=== PATIENT | female | born 1965 | race Caucasian/White ===

== ENCOUNTER 2018-08-23 11:26 | Outpatient (CLI) | payer BC, SELFPAY ==
[2018-08-23 14:23] LABS: TSH (W/Ref FT4) 1.43 uIU/mL (0.358-3.74)
[2018-08-24 10:35] LABS: FSH 81.7 mIU/ml; Prolactin 9.3 ng/ml
[2018-08-24 10:59] LABS: LH 31.7 mIU/ml
== END 2018-08-23 11:46 ==
PROVIDERS: Visit Provider Obstetrics & Gynecology
DX: N92.6 Irregular menstruation, unspecified (principal); N92.0 Excessive and frequent menstruation with regular cycle
CPT/HCPCS: 36415; 83001; 83002; 84146; 84443

== ENCOUNTER 2018-08-23 13:16 | Outpatient (REF) | payer BC, SELFPAY ==
--- NOTE | 2018-08-23 11:20 | PAPFT_PTH ---
PATIENT: Mahsa Blackburn LOC: [place] U#:[id number] AGE/SX: 52/F ROOM: RE08/23/[address]: Florencia Multani MD : 1965 BED: DIS: 08/23/2018 SPEC #: [id number] RECD: 08/23/18 17:38 STATUS: MAGGIE REQ #: [id number] KEKE: 08/23/18 11:[address]: Florencia Multani DEPT: [facility] Cytology RECD BY: China Byrne ENTERED: 08/23/18 17:38 SP TYPE: PAPFT MCKENZIE DR: None Tissues: 1 - CX/ENDOCX FOR PAP SMEARS Procedures: PAP THIN PREP/[facility] Screening HPV DNA PROBE Comments: [id number] (CHLAMYDIA/GC)
[2018-08-24 15:36] LABS: Chlamydia Result Negative; GC Result Negative; Specimen Description SEE COMMENTS
== END 2018-08-23 13:36 ==
LOC: LBN 13:16
PROVIDERS: Visit Provider Obstetrics & Gynecology
DX: Z12.4 Encounter for screening for malignant neoplasm of cervix (principal); Z11.51 Encounter for screening for human papillomavirus (HPV); Z11.3 Encounter for screening for infections with a predominantly sexual mode of transmission
CPT/HCPCS: 87491; 87591; 88142; 87624

== ENCOUNTER 2018-09-04 15:22 | Outpatient (REF) | payer BC, SELFPAY ==
--- NOTE | 2018-09-04 14:45 | ENDOMET_PTH ---
PATIENT: Mahsa Blackburn LOC: [place] U#:[id number] AGE/SX: 52/F ROOM: RE09/04/[address]: Florencia Multani MD : 1965 BED: DIS: 09/04/2018 SPEC #: [id number] RECD: 09/04/18 17:35 STATUS: MAGGIE REQ #: [id number] KEKE: 09/04/18 14:[address]: Florencia Multani DEPT: Surgical Specimen RECD BY: China Byrne ENTERED: 09/04/18 17:36 SP TYPE: Endomet OTHR DR: None Tissues: 1 - ENDOMETRIUM BX/CURRETTE Procedures: GROSS AND MICRO LEVEL 4 Comments: [id number]
== END 2018-09-04 15:42 ==
LOC: LBN 15:22
PROVIDERS: Visit Provider Obstetrics & Gynecology
DX: N85.00 Endometrial hyperplasia, unspecified (principal); N93.8 Other specified abnormal uterine and vaginal bleeding
CPT/HCPCS: 88305

== ENCOUNTER 2018-09-10 08:00 | Outpatient (CLI) | payer BC, SELFPAY ==
--- NOTE | 2018-09-10 10:02 | DI.US_ITS ---
SYMPTOMS/DIAGNOSIS: IRREGULAR BLEEDING/FIBROIDS, N92.6 PELVIC ULTRASOUND: Pelvic ultrasound was performed transabdominally and transvaginally. The patient is reportedly premenopausal. The ovaries have a normal follicular appearance with 13 mm follicle or cyst of the right ovary. There are multiple uterine fibroids and the uterus is incompletely visualized due to posterior acoustic shadowing from fibroids. The largest visible fibroid is about 5 cm in greatest diameter. Endometrial stripe suboptimally visualized with some fluid seen within the endometrial stripe. Endometrium is about 9 mm in thickness and appears fairly homogeneous as visualized. CONCLUSION: Findings consistent with multiple uterine fibroids as described. Small quantity of free fluid in the endometrial cavity.
== END 2018-09-10 08:20 ==
PROVIDERS: Visit Provider Obstetrics & Gynecology
DX: N92.6 Irregular menstruation, unspecified; D25.9 Leiomyoma of uterus, unspecified
CPT/HCPCS: 76830; 76856

== ENCOUNTER 2019-08-15 07:49 | Outpatient (CLI) | payer BC, SELFPAY ==
--- NOTE | 2019-08-15 09:52 | DI.MAMMO_ITS ---
EXAM: MG MAMMO SCREENING CLINICAL HISTORY: SCREENING, Z12.31 TECHNIQUE: Bilateral full field digital CC and MLO mammographic images were obtained with 3D tomosyn thesis and utilizing computer aided detection (CAD). COMPARISON: Available for comparison. FINDINGS: Masses/Architectural Distortion: None seen. Since the prior examination the patient has undergone kisha ateral breast reconstruction. Microcalcifications: No suspicious pleomorphic-type are seen. Skin Thickening/Nipple Retraction: None. IMPRESSION: 1. No significant interval change with no specific features of malignancy noted. 2. Unless there is more urgent need, screening mammography is recommended, as per [place] [employer] guidelines. BI-RADS Category 2 - Benign Findings Breast Density - Category B - Scattered areas of fibroglandular density A negative radiographic report should not delay biopsy if a dominant or clinically suspicious mass is present. Up to ten percent of cancers are not identified on mammography. A negative report may reinforce clinical impression. Adenosis and dense breasts may obscure an underlying neoplasm. False positive reports average 6 to 10%. Patient will receive a letter notifying them of these results.
== END 2019-08-15 08:09 ==
PROVIDERS: Visit Provider Obstetrics & Gynecology
DX: Z12.31 Encounter for screening mammogram for malignant neoplasm of breast (principal)
CPT/HCPCS: 77063; 77067

== ENCOUNTER 2020-05-19 01:57 | Outpatient (CLI) | payer BC, SELFPAY ==
[2020-05-20 15:18] LABS: COVID-19 RT-PCR UVMMC Result Negative (Negative)
== END 2020-05-19 01:58 | disposition home or self-care (01) ==
LOC: LBO 01:57
PROVIDERS: Visit Provider Surgery
DX: Z20.822 Contact with and (suspected) exposure to COVID-19 (principal); Z01.818 Encounter for other preprocedural examination
CPT/HCPCS: U0003

== ENCOUNTER 2020-05-22 07:17 | Day surgery (SDC) | payer BC, SELFPAY ==
[2020-05-22 07:23] VITALS: BP 117/75; PULSE 72; RESP 16; TEMP 36.6; O2SAT 97
[2020-05-22] MEDS: Lactated Ringers 1,000 ML 80 ML IV (07:46)
--- NOTE | 2020-05-22 08:54 | W.COLOREPORT ---
Date of service: 05/22/20 Time of Service: 08:54 Colonoscopy Report Date of procedure: 05/22/20 Pre-op diagnosis general: screen Post-op diagnosis procedure note: other (divertic- mod ) Retraction Time: 8 mins Procedure Description: After informed consent was obtained the patient was taken to the procedure room and placed in a left decubitous position. Monitors were applied and a time out was done. The patients name, date of , procedure, allergies to medications and metal in their body was reviewed. The patient was then sedated. Once sedated and comfortable a rectal exam was done. External exam was normal. Internal exam revealed a normal sphincter tone and no palpable mass. The scope was then introduced and retrofelexed. No internal hemorrhoids were identified. The scope was then advanced to the cecum w/out difficulty. The TI and appendiceal orifice were identified. The prep was good. The scope was then slowly retracted over 8 minutes back into the rectum. Moderate diverticula. No signs of active bleeding or infection. The scope was removed and the patient was woken up and taken back to Same day surgery in stable condition. The patient tolerated the procedure well and there were no immediate complications. Follow up: The patient should follow up in 10 years unless they develop changes in bowel habits or other new gastrointestinal complaints.
--- NOTE | 2020-05-22 08:56 | PDOC.DSDIS_ITS ---
Discharge Plan Disposition Patient Disposition: HOME Condition: Good Discharge Details Reason For Visit: colon scope Attending Provider: Raquel De La Cruz Primary Care Provider: None,None Home Meds and New Rx's Prescriptions: Continued naproxen 250 mg tablet 250 mg PO BID RF: 0 Maximum Daily Multivitamin 18-0.4 mg tablet 1 tab PO DAILY RF: 0 vitamin B complex [B Complex-Vitamin B12] Tablet 1 tab PO DAILY RF: 0 Discontinued polyethylene glycol 3350 17 gram/dose powder 238 g PO ONCE Qty: 238 RF: 0 bisacodyl [Dulcolax (bisacodyl)] 5 mg tablet,delayed release (DR/EC) 5 mg PO ONCE Qty: 4 RF: 0 Discharge Instructions Additional Instructions: Findings:moderate diverticula . Make sure you follow a high-fiber diet and avoid straining to move your bowels. Follow up: Repeat colonoscopy in 10 years time Please call if you develop: fevers >101.5 Nausea or Vomiting Abdominal pain that is not transient DAY SURGERY UNIT POST COLONOSCOPY INSTRUCTIONS 1. Because there will be medication in your system for the next 24 hours, you may feel a little sleepy. Your coordination will be affected. Therefore: a. Do not drive or operate dangerous equipment for 24 hours. b. Do not drink alcohol beverages for 24 hours (not even beer). c. Plan to go home and rest for the day. 2. Generally there are no restrictions on your activity after a day or so has gone by, but you may feel a bit fatigued for a few days. 3 After you arrive home you may have a light meal and return to a normal diet as you can tolerate it without feeling sick to your stomach. 4. After surgery, you may feel pain or discomfort. This should be only transient, but if it persists please contact your doctor. 5. If there are any questions regarding the findings of your procedure, please feel free to contact your doctor. 6. If you are unable to contact your doctor with a problem, contact the hospital at [phone]. 7. Continue all your regular medications unless directed otherwise. I understand the above instructions and have no questions. Signature of Patient or Responsible Adult Escort Date/Time Name of Responsible Adult Escort Signature of Nurse Date/Time DIVERTICULAR DISEASE OVERVIEW ? A diverticulum is a pouch-like structure that can form through points of weakness in the muscular wall of the colon (ie, at points where blood vessels pass through the wall). Diverticulosis affects men and women equally. The risk of diverticular disease increases with age. It occurs throughout the world but is seen more commonly in developed countries. WHAT IS DIVERTICULAR DISEASE? Diverticulosis ? Diverticulosis merely describes the presence of diverticula. Diverticulosis is often found during a test done for other reasons, such as flexible sigmoidoscopy, colonoscopy, or barium enema. Most people with diverticulosis have no symptoms and will remain symptom free for the rest of their lives. A person with diverticulosis may have diverticulitis, or diverticular bleeding. Diverticulitis ? Inflammation of a diverticulum (diverticulitis) occurs when there is thinning and breakdown of the diverticular wall. This may be caused by increased pressure within the colon or by hardened particles of stool, which can become lodged within the diverticulum. The symptoms of diverticulitis depend upon the degree of inflammation present. The most common symptom is pain in the left lower abdomen. Other symptoms can include nausea and vomiting, constipation, diarrhea, and urinary symptoms such as pain or burning when urinating or the frequent need to urinate. Diverticulitis is divided into simple and complicated forms. ?Simple diverticulitis, which accounts for 75 percent of cases, is not associated with complications and typically responds to medical treatment without surgery. ?Complicated diverticulitis occurs in 25 percent of cases and usually requires surgery. Complications associated with diverticulitis can include the following: ?Abscess ? a localized collection of pus ?Fistula ? an abnormal tract between two areas that are not normally connected (eg, bowel and bladder) ?Obstruction ? a blockage of the colon ?Peritonitis ? infection involving the space around the abdominal organ ?Sepsis ? overwhelming body-wide infection that can lead to failure of multiple organs Diverticular bleeding ? Diverticular bleeding occurs when a small artery located within a diverticulum is eroded and bleeds into the colon. Diverticular bleeding usually causes painless bleeding from the rectum. In approximately 50 percent of cases, the person will see maroon or bright red blood with bowel movements. Is bleeding with a bowel movement normal? ? It is not normal to see blood in a bowel movement; this can be a sign of several conditions, most of which are not serious (eg, hemorrhoids) but some of which are serious and require immediate treatment. Anyone who sees blood after a bowel movement should consult with their healthcare provider to determine if further testing or evaluation is needed. DIVERTICULOSIS AND DIVERTICULITIS DIAGNOSIS ? Diverticulosis is often found during tests performed for other reasons. ?Barium enema ? This is an x-ray study that uses barium in an enema to view the outline of the lower intestinal tract. This is an older test and has been largely replaced by computed tomography (CT) scan. ?Flexible sigmoidoscopy ? This is an examination of the inside of the sigmoid colon with a thin, flexible tube that contains a camera. ?Colonoscopy ? This is an examination of the inside of the entire colon. ?CT scan ? A CT scan is often used to diagnose diverticulitis and its complications. If diverticulitis (not just diverticulosis) is suspected, the above three tests should not be used because of the risk of perforation. TREATMENT Diverticulosis ? People with diverticulosis who do not have symptoms do not require treatment. However, most clinicians recommend increasing fiber in the diet, which can help to bulk the stools and possibly prevent the development of new diverticula, diverticulitis, or diverticular bleeding. Fiber is not proven to prevent these conditions in all patients but may help to control recurrent episodes in some. Increase fiber ? Fruits and vegetables are a good source of fiber. Fiber content of packaged foods can be calculated by reading the nutrition label. Seeds and nuts ? Patients with diverticular disease have historically been advised to avoid whole pieces of fiber (such as seeds, corn, and nuts) because of concern that these foods could cause an episode of diverticulitis. However, this belief is completely unproven. We do not suggest that patients with diverticulosis avoid seeds, corn, or nuts. Diverticulitis ? Treatment of diverticulitis depends upon how severe your sym ptoms are. Home treatment ? If you have mild symptoms of diverticulitis (mild abdominal pain, usually left lower abdomen), you can be treated at home with a clear liquid diet and oral antibiotics. However, if you develop one or more of the following signs or symptoms, you should seek immediate medical attention: ?Temperature >100.1?F (38?C) ?Worsening or severe abdominal pain ?An inability to tolerate fluids Hospital treatment ? If you have moderate to severe symptoms, you may be hospitalized for treatment. During this time, you are not allowed to eat or drink; antibiotics and fluids are given into a vein. If you develop an abscess of the colon, you may require drainage of the abscess (usually performed by placing a drainage tube across the abdominal wall) or by surgically opening the affected area. Surgery ? If you develop a generalized infection in the abdomen (peritonitis), you will usually require an emergency operation. A two-part operation may be necessary in some cases. ?The first operation involves removal of the diseased colon and creation of a colostomy. A colostomy is an opening between the colon and the skin, where a bag is attached to collect waste from the intestine. The lower end of the colon is temporarily sewed closed to allow it to heal. ?Approximately three to six months later, a second operation is performed to reconnect the two parts of the colon and close the opening in the skin. You are then able to empty your bowels through the rectum. Sometimes patients require up to a year to recover from the first operation, depending on how sick they were. In non-emergency situations, the diseased area of the colon can be removed and the two ends of the colon can be reconnected in one operation, without the need for a colostomy. Surgery versus medical therapy ? An operation to remove the diseased area of the colon may be necessary if you do not improve with medical therapy. After an episode of uncomplicated diverticulitis, elective surgery is generally not required as the risk of another attack or requiring emergency surgery is low. However, patients with persistent symptoms attributable to diverticulitis, a history of complicated diverticulitis, or a compromised immune system should be evaluated for possible surgery to prevent another attack. In such patients, another attack has been associated with a higher risk of complications or . Of course, the decision will also depend in part upon your other medical conditions and ability to undergo surgery. In many cases, an elective operation can be performed laparoscopically, using small incisions, rather than the typical vertical (up and down) abdominal incision. Laparoscopic surgery usually allows you to recover more quickly and shortens the hospital stay. After diverticulitis resolves ? After an episode of diverticulitis resolves, if you have not had a recent colonoscopy, the entire length of the colon should be evaluated to determine the extent of disease and to rule out the presence of abnormal lesions such as polyps or cancer. Recommended tests include colonoscopy, barium enema and sigmoidoscopy, or CT colonography. Diverticular bleeding ? Most cases of diverticular bleeding resolve on their own. However, some people will need further testing or treatment to stop bleeding, which may include a colonoscopy, angiography (a treatment that blocks off the bleeding artery), bleeding scan, or surgery. DIVERTICULAR DISEASE PROGNOSIS Diverticulosis ? Over time, diverticulosis may cause no problems or it may cause episodes of bleeding and/or diverticulitis. Approximately 15 to 25 percent of people with diverticulosis will develop diverticulitis, while 5 to 15 percent will develop diverticular bleeding. Diverticulitis ? Approximately 85 percent of people with uncomplicated div erticulitis will respond to medical treatment, while approximately 15 percent of patients will need an operation. After successful treatment for a first attack of diverticulitis, one-third of patients will remain asymptomatic, one-third will have episodic cramps without diverticulitis, and one-third will go on to have a second attack of diverticulitis. The prognosis tends to remain similar following a second attack of diverticulitis. Only 10 percent of people remain symptom-free after a second attack. Subsequent attacks tend to be of similar severity, not increasing in severity as previously believed. High Fiber Diet What is Dietary Fiber? All fiber comes from plants, bushes, carli or trees. Of course, the ones that we eat provide us with fruits, vegetables and grains. There are many different types of fiber but the three that are most important to the health of the body are: Insoluble Fiber This fiber does not dissolve in water, nor is it fermented by the bacteria residing in the colon. Rather, it retains water and in so doing, helps to promote a larger, bulkier and more regular bowel activity. This, in turn, may be important in preventing disorder such as diverticulosis and hemorrhoids, and in sweeping out certain toxins and cancer causing carcinogens. Sources of insoluble fiber are: ? whole grain wheat and other whole grains ? corn bran, including popcorn, unflavored and unsweetened ? nuts and seeds ? potatoes and the skins from most fruits from trees such as apples, bananas and avocados ? many green vegetables such as green beans, zucchini, celery and cauliflower ? some fruit plants such as tomatoes and kiwi Soluble Fiber These fibers are fermented or used by the colon bacteria as a food source or nourishment. When these good bacteria grow and thrive, many health benefits occur in both the colon and the body. Soluble fiber is present in some degree in most edible plant foods, but the ones with the most soluble fiber include: ? legumes such as peas and most beans, including soybeans ? oats, rye and barley ? many fruits such as berries, plums, apples bananas and pears ? certain vegetables such as broccoli and carrots ? most root vegetables ? psyllium husk supplement products Prebiotic Soluble Fiber These are relatively newly discovered soluble plant fibers. The technical name for this fiber is inulin or fructan. When these soluble fibers are fermented by the good colon bacteria, some further significant health benefits have been shown to occur by research in many medical centers. These soluble prebiotic fibers occur in significant amounts in: ? asparagus ? yams ? onions ? garlic ? bananas ? leeks ? agave ? chicory and other root vegetables such as Louise artichokes ? wheat, rye and barley (smaller amounts) Benefits of a High Fiber Diet The health benefits of a high fiber diet, consumed on a regular basis and reaching recommended amounts (below), are now fairly well-defined. There are some additional benefits in the early research stage with the prebiotic soluble fibers. What is now known regarding a high fiber diet include: Bowel Regularity A high fiber diet promotes regularity with a softer, bulkier and regular stool pattern. This decreases the chance of hemorrhoids, diverticulosis and perhaps colon cancer. Cholesterol and Reduced Triglycerides The soluble fibers are the ones that will reduce cholesterol levels when used on a regular basis. Psyllium husk and prebiotic soluble fiber will also reduce cholesterol. They may also reduce the incidence of coronary heart disease. Oats, flax seeds and legumes or beans are the recommended fibers. Colon Polyps and Cancer It is still not certain if a high fiber diet helps prevent colon cancer. Considerable research suggests that this may occur. Certainly it makes sense to increase regularity and so speed the movement of cancer causing carcinogens through the bowel. In addition, reducing a heavy meat diet reduces the bile flow from the liver in a favorable way. This, too, reduces the amount of carcinogens that reach and are manufactured in the colon. Finally, a high fiber diet, including prebiotic soluble fiber, increases the integrity and health of the wall of the colon. The risk of cancer may be reduced. Colon Wall Integrity A high fiber diet changes the bacterial makeup of the colon toward a more favorable balance. For instance, it is known that those people with obesity, diabetes type 2 and inflammatory bowel disease have a predominance of bad bacteria in the colon. This, in turn, may render the bowel wall weak and allow bacteria and, indeed, even toxins to seep through. A high fiber diet with a modest reduction in animal and meat products may return the bacterial makeup to a more positive balance. This, in particular, has been seen when the soluble fib er prebiotics are added to the diet. Blood Sugar Soluble fiber such as in legumes (beans), oats and in prebiotic fibers slows the absorption of blood sugar and so helps regulate the sugar in the blood. Insoluble fiber on a regular basis is associated with reduced risk of type 2 diabetes. Weight Loss High fiber diets are more filling and give a sense of fullness sooner than an animal and meat based diet does. In addition, the soluble prebiotic fibers have been shown to turn off the hunger hormones produced in the wall of the gut and to increase the hormones that give a sense of fullness. Those hormones are made in the wall of the gut. New medical research has shown that the bacterial makeup in the colon in overweight people is abnormal to the extent that they manufacture and absorb almost twice the number of calories through the colon wall as do normals. Prebiotic fibers (below) will help change this hormonal balancein a favorable way. Bacteria and the Function of the Colon The colon finishes the digestive process. Hopefully, the waste products move through in a nice regular manner. Insoluble fibers help this process by retaining water and so producing a bulkier, softer stool, which is easy to pass. The additional role of the colon is to provide a home for an enormous number of micro-organisms, mostly bacteria. Recent research has shown that there are over 1,000 species of bacteria with a total bacterial count ten times the number of cells in the body. These bacteria play a major role in keeping the colon wall itself healthy. In addition, these good bacteria produce a very strong immune system for the body. They significantly increase calcium absorption and bone density. They provide other documented benefits. It is the soluble fibers in the diet that are so effective in stimulating the growth of good colon bacteria. How Much is Enough? The amount of fiber in food is measured in grams. National nutritional authorities recommend the following amounts of dietary fiber daily. Under Age 50 Over Age 50 Men 38 grams 30 grams Women 25 grams 21 grams For a week or so, it is best to tally the amount of fiber you are consuming. Boxed and packaged foods will have the amount of fiber per serving on the nutrition label. Which Fibers and Which Foods are Best? As noted, healthy fiber is only found in plants. The three major categories are whole grains, fruits and vegetables. Whole Grains Wheat, oats, barley, wild or brown rice, amaranth, buckwheat, bulgur, corn, millet, quinoa, rye, sorghum, teff and triticals. By far, wheat, oats and wild or brown rice are most common. Always buy whole grain products. White bread, baked goods and rolls almost always are made from wheat flour. Wheat flour is white because most of the fiber, vitamins and other nutrients have been removed. Try not buy enriched grains. What this means is that simple white flour has had vitamins added to it by the scale technician. The word, enriched, implies a good and healthy product. On the contrary, enriched means that most of the fiber has been removed and a few vitamins added. Fruits Fruits come from trees such as apple and pear or from bushes or carli. You should eat a wide variety of fruits, preferably with every meal. In many cases, the skin of a fruit such as apple will contain much of the insoluble fiber while the pulp contains most of the soluble fiber. To the extent possible, buy organic fruits as these will have little or no pesticides. Always wash fruit. Vegetables Eat a wide variety of vegetables. They should be a mainstay of lunch and dinners. Frozen vegetables retain as much nutrition and fiber as fresh vegetables. As with fruit, try to buy organic to reduce any residual pesticide ingestion. Wash fresh vegetables thoroughly. Cruciferous vegetables such as broccoli, [place] sprouts and cauliflower contain certain chemicals such as sulforaphane. This substance has very strong anti-cancer properties and should be eaten frequently. Legumes, Beans, Peas and Soybeans These vegetables have plenty of soluble fiber and should be part of a varied vegetable intake. Beans, in particular, contain a certain type of fiber that may lead to harmless gas or bloating. Nuts and Seeds These are rich sources of fiber and are a good substitute for sweets such as candies and baked sweet goods. While nuts and seeds are rich in fiber, they also contain vegetable fat and so can and do add calories. Read the Labels As noted, fresh and frozen foods are usually better. They have good nutrition and few, if any, chemicals added to them. When buying packaged foods and, in particular grains, look for three things: ? The first word on the label should be whole, such as whole wheat or whole grain. ? Check out the calories and the amount of fiber in a serving. ? How many and what other additives or chemicals are added. Fewer is always better. Do you know what each additive does? Some are added not for the benefit of the departmental buyer but rather for manufacturers. These could and do include sugar, artificial flavor, chemicals to prevent oxidation and spoilage, emulsifiers to blend the product. You have to be a continuing education dean. Fiber Facts, Nuggets and Pearls ? For breakfast you can easily get the day started well by using a high fiber, whole grain cereal. Check the labels. Add fruit such as blueberries and bananas. If you are an egg eater, use whole wheat or grain toast. Adding wheat germ gives you a good fiber kick. ? Always use whole grain or wheat with rolls and sandwiches. Does your fast food store not have them? Perhaps you look elsewhere. Eating an occasional black smalls or veggie burger provides variety. ? Snacks should consist of fruit and/or nuts. While nuts are loaded with fiber, they are an energy rich food, meaning they have a lot of calories in a small packet. ? Fruit juices should contain pulp. Clear juices such as clear orange, pear or apple juice contain little fiber and have a lot of fructose. Prune juice is usually high in fiber. ? Homemade soups ? adding fresh or frozen vegetables to a chicken or vegetable stock is a good way to start homemade soup. ? Salads ? adding cooked and then chilled vegetables provide great flavoring to almost any salad. Remember, a augustine salad has lots of cooked corn in it. Small slices of apples or oranges and nuts such as chopped walnuts or sliced almonds always adds taste, variety and fiber to almost any salad. ? Fruit ? Try to eat fruit of some type with almost every meal. ? Rethink how you place the various foods on your dinner plate. Reducing the portions of the meat or animal food portion to the side with equal or more portions of vegetables, legumes and fruits portion always allows for more fiber. There was never anything magic about making the meat or animal food portion the main part of the dinner plate. Eating from smaller plates can, over time, trick your mind and assisted habit of using a dinner plate. Again, there is nothing magic in an 11, 12, or 13 inch dinner plate. Fiber Supplements There are a variety of fiber supplements available on the food or pharmacy shelves. Psyllium This soluble plant fiber has been used in [place] for over 2,000 years. It is a soluble fiber with mucilage in it. This acts to retain a lot of water and also is fermented by colon bacteria. When 7 grams a day are used, it does lower cholesterol. Metamucil in various forms is psyllium. Methyl Cellulose All the cellulose products come from finely ground wood chips which are then treated in a variety of ways such as boiling in acids. Methyl cellulose is an insoluble fiber which does dissolve in water. It is also an emulsifier, meaning it blends oils and water. Citrucel is methyl cellulose (MC). MC may not be appropriate for Crohn?s disease or ulcerative colitis as several medical studies have shown that certain emulsifiers dissolve the mucous lining of the colon in animals prone to Crohn?s disease. This then allows bacteria to invade the u nderlying tissue. Inulin Inulin is a soluble prebiotic fiber found in many foods and which are fermented mostly in the left side of the colon. It is available in a supplement as generic inulin and in Fiber Choice. Oligofructose FOS These are also prebiotic fibers. They are fermented very quickly in the right side of the colon. Prebiotin This product is a combination of oligofructose, which feeds the bacteria in the right side of the colon and inulin, which does the same in the left side of the colon. There seems to be a benefit for this particular formula based on medical research. Prebiotic Soluble Fiber These may be the healthiest of all the soluble fibers. They grow in many plants and have had a great deal of research done on them in the last 10-15 years. These fibers are found in asparagus, yams and other root vegetables such as chicory, garlic, onion, leeks and in smaller amounts in wheat. This research has shown the following: ? Increase in good and decrease in bad colon bacteria ? Increase calcium absorption and enhanced bone mass ? Enhanced immune system ? Appetite and weight control by changing the hormone appetite signals to the brain ? May decrease colon cancer incidence ? Reduce or correct a leaky colon Eating a wide variety of plant food up to the recommended amount will likely give you enough prebiotic fiber. Supplements such as Prebiotin can be added to the diet. Short Chain Fatty Acids (SCFA) Some rather remarkable research findings have shown that one of the benefits of ingesting a lot of soluble fiber, in particular the prebiotic ones, results in larger amounts of SCFAs in the colon. These SCFAs are made by the good bacteria in the colon such as Bifidobacter and Lactobacillus. These small molecules have been shown to do the following: ? Enhance the health and integrity of the colon wall ? Provide nourishment for the cells that actually line the colon ? Increases the acidity of the colon which is a very real health benefit ? Stabilize blood sugar for diabetics ? Reduce blood cholesterol and triglyceride ? Significantly enhance immunity ? May be a benefit for Crohn?s disease and ulcerative colitis patients Fiber and Gas Everyone has intestinal gas and that is a good thing. It means that bacteria, hopefully the good ones, are thriving. The normal amount of flatus passed each day depends on sex and what is eaten. The normal number of flatus is 10-20 times a day. When the bacteria that make intestinal gases are growing, it also means that other good bacteria are using the same fibers to grow and produce multiple health benefits, including the production of healthy short-chain fatty acids. These substances are produced quietly in the colon and produce many health-related outcomes. Soluble fiber should always be used in a gradual manner. If too much is consumed at any one time, then excess, but harmless, intestinal gas can occur. People with irritable bowel syndrome are particularly prone to bloating and mild cramping. In this instance, soluble fiber in the diet or supplement should be used in small doses and increased gradually. Finally, prebiotic fibers tend to cause the production of short-chain fatty acids which acidify the colon. This, in turn, reduces or stops the growth of bacteria that make the smelly hydrogen sulfide gases that produce noxious flatus. People who consume many vegetables with prebiotics or take a prebiotic fiber supplement often have non-odoriferous flatus. Fiber and Irritable Bowel Syndrome Irritable bowel syndrome (IBS) is one of the most common disorders of the lower digestive tract. The symptoms of IBS can be quite varied. They can be a mix of several symptoms such as constipation, diarrhea, crampy abdominal discomfort, bloating and gas. An attack of IBS can be triggered by emotional tension and anxiety, poor dietary habits and certain medications. It is now known that infections in the intestine can lead to long-term IBS symptoms. Increased amounts of fiber in the diet can help relieve the symptoms of irritable bowel syndrome by producing soft, bulky stools. This helps to normalize the time it takes for the stool to pass through the colon. Recent medical research with newer techniques has shown some surprising and dramatic findings for IBS patients. Specifically, there is a very significant and abnormal shift of bacteria from those that provide health benefits to those bad bacteria that we really do not want in the gut. The technical name for this bad group of bacteria is called Firmicutes. Along with this abnormal bacterial collection, there is a smoldering low-grade inflammation in the gut wall that may contribute to symptoms. The goal for IBS patients should be to gradually increase the soluble dietary fibers in the diet so as to promote the growth of good bacteria and so suppress the bad ones along with the associated inflammation. IBS patients need to be careful of the amount of soluble fiber they consume. The reason for this is that, while the good colon bacteria thrive on these fibers and produce health benefits, other gas-forming bacteria may generate excessive but harmless gas and subsequent bloating. Thus, soluble plant fibers or a dietary prebiotic supplement should be taken in small initial doses and then gradually increased to tolerance. Fiber and Colon Polyps/Cancer Colon cancer is a major health problem. This disease is most common in Western cultures. It is not seen very often in rural cultures where the diet is mostly plant based. Usually, colon cancer starts out as a colon polyp, a benign mushroom-shaped growth. In time it grows, and in some people it becomes cancerous. Colon cancer is usually always curable if polyps are removed when found or if surgery is performed at an early stage. It is now known that people can inherit the risk of developing colon cancer, but diet is important, too. As noted, there is a very low rate of colon cancer in residents of countries where grains are unprocessed and retain their fiber. It seems that in the [place] world, cancer-containing agents (carcinogens) remain in contact with the colon wall for a longer time and in higher concentrations. So, a large bulky stool may act to dilute these carcinogens by moving them through the bowel more quickly. Less carcinogenic exposure to the colon may mean fewer colon polyps and less cancer. A very current review of the entire world?s literature on the effect of fiber on colon polyps and cancer prevention has shown rather clearly that for every 10 grams of fiber added to the diet, there is a 10% reduction in incidence of colon cancer. So the recommended 30 gram fiber diet would result in a 30% less chance of getting these tumors. There are also substances produced in the colon by the good bacteria that seem t o retard certain pre-cancer factors from developing. They are called short-chain fatty acids (SCFA). See above for description of SCFAs. A high fiber diet increases these substances. So, the combination of dietary fiber and the production of short-chain fatty acids have a clear health benefit. Fiber and Diverticulosis Prolonged, vigorous contraction of the colon over a long period of time may resu lt in diverticulosis. This increased pressure causes small and, eventually, larger ballooning pockets to form. These pockets by themselves cause no problem. However, sometimes they become infected (diverticulitis) or even break open (perforate) causing infection or inflammation within the abdomen (peritonitis). A high fiber diet increases the bulk in the stool and thereby reduces the pressure within the colon. By so doing, the formation of pockets may be reduced or possibly even stopped. In the past, many physicians were fearful that seeds as in tomatoes, nuts or berries were harmful and could get inside these pockets and rattle around, causing damage. We now know that this has never been the case and that these foods contain lots of fiber and are actually beneficial for diverticulosis patients. Certain bulking agents such as psyllium are traditional types of bulk producing supplements. Psyllium is a soluble fiber. Combining it with insoluble fiber as in wheat bran or corn bran (no gluten) can enhance this bulking effect even more. A product containing a prebiotic, psyllium and wheat bran is probably a very good combination for bowel regularity. Prebiotin Regularity/Diverticulosis is one such product. Activity:: No lifting over 20 pounds or strenuous activity x24 hours. Diet:: Small light meals x24 hours. Discharge Orders Discharge Orders: Discharge Order (Routine); Ordered 05/22/20 Ordered By: Raquel De La Cruz DS: Diagnosis Discharge Diagnosis (1) Diverticula of colon: Status: Acute
[2020-05-22 09:12] VITALS: BP 91/54; PULSE 53; RESP 16; TEMP 36.5; O2SAT 96
== END 2020-05-22 09:25 | disposition home or self-care (01) ==
PROVIDERS: Visit Provider Surgery
PROC: 0DJD8ZZ Inspection of Lower Intestinal Tract, Via Natural or Artificial Opening Endoscopic (ICD-10-PCS; CPT 45378; principal; 2020-05-22 08:15)
DX: Z12.11 Encounter for screening for malignant neoplasm of colon (principal); K57.30 Diverticulosis of large intestine without perforation or abscess without bleeding
CPT/HCPCS: 45378; J2001

== ENCOUNTER 2022-08-15 00:57 | Outpatient (CLI) | payer BC, SELFPAY ==
--- NOTE | 2022-08-15 08:46 | DI.MAMMO_ITS ---
Exam(s) MAMMO SCREENING EXAM: MAMMO SCREENING CLINICAL HISTORY: screening,z12.39 TECHNIQUE: Mammograms were interpreted according to the usual protocol including computer analysis w [employer] CAD system, tomosynthesis and C-view imaging. COMPARISON: 2015 through 2020 FINDINGS: The breasts are composed of scattered fibroglandular densities, Breast Density category B. No suspicious masses or suspicious microcalcifications are seen. No skin thickening or abnormal axillary lymph nodes are seen. Bilateral scarring is again noted in t he subareolar regions due to breast reduction surgery. There has been no significant change from prior exams. IMPRESSION: BI-RADS Cat 2 - Benign Findings. Yearly screening mammography is recommended. Breast Density - Category B, scattered fibroglandular densities. A negative radiographic report should not delay biopsy if a dominant or clinically suspicious mass is present. Up to ten percent of cancers are not identified on mammography. A negative report may reinforce clinical impression. Adenosis and dense breasts may obscure an underlying neoplasm. False positive reports average 6 to 10%. Patient will receive a letter notifying them of these results.
== END 2022-08-15 01:17 ==
PROVIDERS: Visit Provider Nurse Practitioner Women's Health
DX: Z12.31 Encounter for screening mammogram for malignant neoplasm of breast (principal)
CPT/HCPCS: 77063; 77067

== ENCOUNTER 2023-04-13 13:01 | Outpatient (REF) | payer BC, SELFPAY ==
--- NOTE | 2023-04-13 11:00 | PAPFT_PTH ---
PATIENT: Mahsa Blackburn LOC: [facility] U#:[id number] AGE/SX: 57/F ROOM: RE04/13/[address]: Juliette Alatorre CNM : 1965 BED: DIS: 04/13/2023 SPEC #: [id number] RECD: 04/13/23 18:19 STATUS: MAGGIE REFabian #: [id number] KEKE: 04/13/23 11:[address]: Juliette Alatorre DEPT: [facility] Cytology RECD BY: China Byrne ENTERED: 04/13/23 18:19 SP TYPE: PAPFT OTHR DR: Phil Nielsen Tissues: 1 - CX/ENDOCX FOR PAP SMEARS Procedures: PAP THIN PREP/[facility] Screening HPV DNA PROBE Comments: [id number]
== END 2023-04-13 13:02 | disposition home or self-care (01) ==
LOC: LBN 13:01
PROVIDERS: PCP Family Medicine; Visit Provider Advanced Practice Midwife
DX: Z12.4 Encounter for screening for malignant neoplasm of cervix (principal)
CPT/HCPCS: 88142; 87624